=== PATIENT | female | born 1930 | race African-American/Black ===

== ENCOUNTER 2019-03-06 15:44 | Emergency (ER) | payer MEDICARE, OTHER ==
[~2019-03-06] VITALS: Ht 154.9 cm; Wt 59.9 kg
[~2019-03-06 15:44] MED LIST: ALPR0.254 PO; AMLO10TA8 PO; AMLO2.5T5 PO; MONT10TA49 PO; OLME40TA12 PO
[2019-03-06 16:22] VITALS: BP 160/74
[2019-03-06] MEDS ORDERED: ORPH100T PO (16:37)
--- NOTE | 2019-03-06 16:37 | PHYS DOC ---
Past Medical History Past Medical History: Hypertension, Other Additional Past Medical Histor: HYPOGLYCEMIA; HYPERCALCEMIA Past Surgical History: No Surgical History Alcohol Use: None Drug Use: None Adult General Chief Complaint Chief Complaint: BACK PAIN - NO INJURY HPI HPI Patient is a 88 year old female that presents with back pain spinal 3 weeks. The patient states this started after she took a trip to [place] 3 weeks ago and it started after the long car trip. She says the pain radiates down her left leg. Rates the pain as 6 out of 10 and sharp and severity. Denies trauma. Review of Systems Review of Systems Constitutional: Denies fever or chills [] Eyes: Denies change in visual acuity, redness, or eye pain [] HENT: Denies nasal congestion or sore throat [] Respiratory: Denies cough or shortness of breath [] Cardiovascular: No additional information not addressed in HPI [] GI: Denies abdominal pain, nausea, vomiting, bloody stools or diarrhea [] : Denies dysuria or hematuria [] Musculoskeletal: Reports left sided back pain that radiates down left leg. Integument: Denies rash or skin lesions [] Neurologic: Denies headache, focal weakness or sensory changes [] Endocrine: Denies polyuria or polydipsia [] Complete systems were reviewed and found to be within normal limits, except as documented in this note. Allergies Allergies Allergies Coded Allergies Type Severity Reaction Last Updated Verified Penicillins Allergy Unknown 03/27/14 Yes Uncoded Allergies Type Severity Reaction Last Updated Verified DYE Allergy Unknown 01/05/14 Physical Exam Physical Exam Constitutional: Well developed, well nourished, no acute distress, non-toxic appearance. [] HENT: Normocephalic, atraumatic, bilateral external ears normal, oropharynx moist, no oral exudates, nose normal. [] Eyes: PERRLA, EOMI, conjunctiva normal, no discharge. [] Neck: Normal range of motion, no tenderness, supple, no stridor. [] Cardiovascular:Heart rate regular rhythm, no murmur [] Lungs & Thorax: Bilateral breath sounds clear to auscultation [] Skin: Warm, dry, no erythema, no rash. [] Back: Tenderness to left lower back. Extremities: No tenderness, no cyanosis, no clubbing, ROM intact, no edema. [] Neurologic: Alert and oriented X 3, normal motor function, normal sensory function, no focal deficits noted. [] Psychologic: Affect normal, judgement normal, mood normal. [] EKG EKG [] Radiology/Procedures Radiology/Procedures [] Course & Med Decision Making Course & Med Decision Making Pertinent Labs and Imaging studies reviewed. (See chart for details) Appears to be sciatica. Will write a script for Norflex. Also discussed non- pharmacological methods. Dragon Disclaimer Dragon Disclaimer This electronic medical record was generated, in whole or in part, using a voice recognition dictation system. Departure Departure Impression: Primary Impression: Sciatica of left side Disposition: HOME, SELF-CARE Condition: STABLE Referrals: MATY ZENG (PCP) NIKHIL DAVID MD Patient Instructions: Sciatica Additional Instructions: Thank you for visiting [facility]. We appreciate you trusting us with your care. If any additional problems come up don't hesitate to return to visit us. Please follow up with your primary care provider so they can plan additional care if needed and know about the problem that you had. If symptoms worsen come back to the Emergency Department. Any concerning symptoms that start such as chest pain, shortness of air, weakness or numbness on one side of the body, running high fevers or any other concerning symptoms return to the ER. Please take muscle relaxer at night. Be aware it will make you drowsy. Do not drive on this. As we discussed also try heat to the site. Please do not put heat directly on skin. Scripts Orphenadrine Citrate (ORPHENADRINE CITRATE) 100 Mg Tablet.er 1 TAB PO BID PRN for MUSCLE SPASMS, #10 TAB 1 Refill Prov: JALIL HUTCHISON APRN 03/06/19 JALIL HUTCHISON APRN Mar 06, 2019 16:37
== END 2019-03-06 16:42 | disposition home or self-care (01) ==
LOC: ER 15:44
DX: M54.42 Lumbago with sciatica, left side (principal); I10 Essential (primary) hypertension; Z88.0 Allergy status to penicillin; Z91.041 Radiographic dye allergy status
CPT/HCPCS: 99283